=== PATIENT | female | born 1970 | race Caucasian/White ===

== ENCOUNTER 2018-11-14 12:15 | Emergency (ER) | payer OTHER ==
[~2018-11-14] VITALS: Ht 157.5 cm; Wt 57.6 kg
--- NOTE | 2018-11-14 12:41 | NUR ---
PT WAS EVALUATED BY DR THACKER. PT WAS D/C TO HOME. D/C INSTRUCTIONS GIVEN TO THE PT.
[2018-11-14 12:43] VITALS: BP 131/77
== END 2018-11-14 12:44 | disposition home or self-care (01) ==
LOC: ER 12:16
DX: J06.9 Acute upper respiratory infection, unspecified (principal)
CPT/HCPCS: A4663